=== PATIENT | female | born 1940 | race Caucasian/White ===

== ENCOUNTER 2021-04-03 14:06 | Outpatient (CLI) | payer MEDICARE, SELFPAY ==
--- NOTE | ~2021-04-03 | DEXA_ITS ---
Bone Density Report Name: Nona Kay Age: 80 Sex: Female Ethnicity: White Date of : 1940 Indication: postmenopausal; height loss; hysterectomy; Referring Provider: Alyssia Moreno Study: Bone densitometry was performed. Exam Date: April 03, 2021 Accession number: [id number] Bone Density: Region BMD T-score Z-score Classification AP Spine (L1, L2) 1.257 2.5 5.1 Normal Femoral Neck (Left) 0.610 -2.1 0.3 Osteopenia Total Hip (Left) 0.984 0.3 2.5 Normal World Health Organization criteria for BMD impression classify patients as: Normal (T-score at or above -1.0), Osteopenia (T-score between -1.0 and -2.5), or Osteoporosis (T-score at or below -2.5). 10-year Fracture Risk(1): Major Osteoporotic Fracture 15% Hip Fracture 4.6% Reported Risk Factors: [place] (), Neck BMD=0.610, BMI=35.7 (1) FRAX(R) Version 3.08. Fracture probability calculated for an untreated patient. Fracture probability may be lower if the patient has received treatment. Clinical Information Provided by Patient: Has used the following medications: Vitamin D, Calcium Has the following medical conditions: Hysterectomy Patient maximum height was 65 Menopause Age: 48 No regular weight bearing exercise Onset of menses at age 11 Number of children 0 Impression: The patient has low bone mass, based on the Left Femoral Neck T-score. The patient has an estimated ten-year risk of hip fracture of 4.6% and an estimated ten-year risk of major fracture of 15%, based on the WHO FRAX algorithm. Discussion: BONE DENSITY IS LOW AT ONE OR MORE SKELETAL SITES. THE PATIENT'S BMD AND CLINICAL RISK FACTORS CONTRIBUTE TO THIS PATIENT'S INCREASED RISK OF FRACTURE. This patient's lowest T-score is low at one or more skeletal sites. It meets the World Health Organization's (WHO) criteria for ?low bone mass? (T-score between -1.0 and -2.5). The patient's 10-year risk of hip fracture as calculated by FRAX exceeds the threshold where pharmacological therapy is recommended by the National Osteoporosis Foundation (NOF). However, all treatment decisions require clinical judgment and consideration of individual patient factors, including patient preferences, comorbidities, previous drug use, risk factors not captured in the FRAX model (e.g., frailty, falls, vitamin D deficiency, increased bone turnover, interval significant decline in bone density) and possible under or overestimation of fracture risk by FRAX. The patient should follow a healthful lifestyle (good nutrition with adequate calcium and vitamin D, and appropriate weight-bearing exercise). Follow-Up: Consider a repeat BMD and Vertebral Fracture Assessment (VFA) exam in 2 years or sooner if medically necessary, to reassess this patient's status. Reported by: [facility] on 04/03/2021 2:42:00 PM.
== END 2021-04-03 14:07 | disposition home or self-care (01) ==
LOC: ANHIMG 14:08
PROVIDERS: PCP Family Medicine; Visit Provider Family Medicine
DX: Z78.0 Asymptomatic menopausal state (principal); M85.852 Other specified disorders of bone density and structure, left thigh
CPT/HCPCS: 77080

== ENCOUNTER 2022-01-29 12:55 | Outpatient (CLI) | payer MEDICARE, SELFPAY ==
--- NOTE | ~2022-01-29 | XR_ITS ---
XR hip LT min 3V w AP pelvis 01/29/2022 13:48 Indication: Left hip pain Procedure: 4 views left hip Comparison: 11/03/2013 Findings: Mild osteoarthritis of the left hip. Advanced lumbar spondylosis. There is a right total hi p arthroplasty. Pelvic rings are intact. Sacral foramen are symmetric. There is atherosclerosis of th e pelvic vessels. Impression: 1: Mild osteoarthritis of the left hip. Reviewed, dictated and finalized at location A. Impression: 1: Mild osteoarthritis of the left hip.
== END 2022-01-29 12:56 | disposition home or self-care (01) ==
PROVIDERS: PCP Family Medicine; Visit Provider Family Medicine
DX: M16.12 Unilateral primary osteoarthritis, left hip (principal)
CPT/HCPCS: 73502

== ENCOUNTER 2022-07-06 12:30 | Outpatient (RCR) | payer MEDICARE, SELFPAY ==
--- NOTE | 2022-04-12 17:26 | PTOPEVAL1 ---
Assessment and note entered by Abhinav Ocasio, PT Evaluation Information Assessment Status Evaluation Diagnosis L shoulder adhesive capsulitis Onset gradual Subjective Information Nona reports she thinks this all started when she was walking her [employer] mac and it yanked on her leash very hard. The patient has trouble putting on a bra or washing her hair, but in no pain unless she tried to push the shoulder past its range of motion. She is R handed. Reported Pain Level Pain Score 0: Self Report Additional Pain Score Comments no pain unless going into end range of abduction, external rotation, or flexion of the L shoulder. Assessment PT Clinical Summary Antonia Vicente is an 81 year old female coming into the clinic for a diagnosis of L frozen shoulder. She has decreased range of motion in external rotation , flexion and abduction when compared to the R shoulder. Increase in range of motion is causing decreased ability to do activity of daily living. Physical therapy should be beneficial to work on improving the range of motion through exercises, stretching and manual therapy. Modalities used for pain control as needed. Plan of Care Interventions Electrical Stimulation,Hot Pack/Cold Pack,Manual Therapy,Neuro Re-education,Therapeutic Activities, Therapeutic Exercise PT Services Indicated Yes Treatment Frequency and 2x/wk for 4 weeks Duration These treatments will address the objective and functional deficits as defined above. The patient will be advanced safely and appropriately in order for the patient to progress towards his/her prior level of function. Additional exercises will be introduced and as well as a comprehensive home exercise program upon discharge, if needed, ?to ensure carryover of functional gains achieved in the clinic. This treatment plan has been reviewed and agreement upon by the patient.
--- NOTE | 2022-05-10 11:26 | PCPTNOTE ---
Addendum entered by Abhinav Ocasio, PT 05/10/22 15:14: at 1142 patient shows up thinking her appointment was at 1200, unable to see patient, re-evaluation cancelled. Original Note: Patient did not show up for scheduled appointment this date. Called patient and left message to call and reschedule secondary this being her re-evaluation.
[2022-06-07 13:30] VITALS: BP_SYST 135
--- NOTE | 2022-06-07 17:11 | PTOPREEVAL ---
Assessment and note entered by Abhinav Ocasio, PT Evaluation Information Assessment Status Re-evaluation Diagnosis Adhesive capsulitis of L shoulder Onset gradual Subjective Information Patient reports that she did have a fall within the last week on that L shoulder and it hurts more than it has since starting therapy. Reports she is able to get her L shoulder up to wash her hair, but after a while it will start hurting. Reported Pain Level Pain Score 6: Self Report Assessment PT Clinical Summary Antonia Vicente is an 81 year old female coming into the clinic with decreased range of motion and strength in the L shoulder. She was evaluated on 04/12/22 and has attended 5 visits so far. She has improved her external rotation passive range of motion by 60 degrees and is able to now wash her hair for a little bit before pain sets in. She had a fall which has increased her pain. Recommend continued physical therapy to continue to work on strengthening and range of motion of the L shoulder along with modalities and manual therapy to help with pain control. Plan of Care Interventions Electrical Stimulation,Gait Training,Hot Pack/Cold Pack,Manual Therapy,Neuro Re-education,Patient/ Caregiver Education,Therapeutic Activities, Therapeutic Exercise,Ultrasound PT Services Indicated Yes Treatment Frequency and 1-2x/wk for 4 weeks Duration These treatments will address the objective and functional deficits as defined above. The patient will be advanced safely and appropriately in order for the patient to progress towards his/her prior level of function. Additional exercises will be introduced and as well as a comprehensive home exercise program upon discharge, if needed, ?to ensure carryover of functional gains achieved in the clinic. This treatment plan has been reviewed and agreement upon by the patient.
--- NOTE | 2022-06-15 12:56 | PCPTNOTE ---
Patient did not show up for scheduled appointment this date. Called patient, however, had to leave a message.
--- NOTE | 2022-07-06 13:14 | PTOPDC ---
Assessment and note entered by Abhinav Ocasio, PT Evaluation Information Assessment Status Discharge Diagnosis Adhesive capsulitis of the L shoulder Onset gradual Subjective Information Patient reports that she is able to wash her hair and grab her parking brake without issue. The only activity she cannot do according to her is putting on a bra with the L arm. Patient reports no pain unless at end range of internal rotation. Reported Pain Level Pain Score 0: Self Report Additional Pain Score Comments Patient reports moderate dull pain with L internal rotation. Assessment PT Clinical Summary Nona is an 81 year old female coming into the clinic for 10 visits. She reports she is back to being able to washing her hair and her normal activities of daily living besides putting on her bra. At this time it was agreed with therapy and patient to continue working on the IR with her HEP and to discontinue skilled physical therapy. Plan of Care PT Services Indicated No Treatment Frequency and discharged from skilled physical therapy. Duration
== END 2022-07-09 08:09 | disposition home or self-care (01) ==
LOC: ANHPT 12:30
PROVIDERS: PCP Family Medicine; Visit Provider Family Medicine
DX: M75.00 Adhesive capsulitis of unspecified shoulder (principal)
CPT/HCPCS: 97014; 97110; 97140; 97161; 97530; 99199; G0283

== ENCOUNTER 2023-01-16 14:36 | Outpatient (CLI) | payer MEDICARE, SELFPAY ==
[2023-01-16 15:34] LABS: Influenza A QL RT-PCR Negative (Negative); Influenza B QL RT-PCR Negative (Negative); RSV RNA, RT-PCR Negative (Negative); SARS-CoV-2 RNA PCR Negative (Negative)
== END 2023-01-16 14:37 | disposition home or self-care (01) ==
PROVIDERS: PCP Family Medicine; Visit Provider Physician Assistant
DX: R50.9 Fever, unspecified (principal)
CPT/HCPCS: 87637

== ENCOUNTER 2023-12-02 12:42 | Outpatient (CLI) | payer MEDICARE, SELFPAY ==
--- NOTE | ~2023-12-02 | XR_ITS ---
XR shoulder RT min 2V Ordering provider: Shelly Montano PA-C History: . R20.0 - Anesthesia of skin . Comparison: None. FINDINGS: BONES: Lucency in the humeral head which may be a fracture although meatuses summation shadow. JOINT SPACES: The acromioclavicular joint is normal. The glenohumeral joint shows osteoarthritic lau ges SOFT TISSUES: Normal. IMPRESSION: Lucency in the humeral head which may indicate a fracture although less likely. Follow-up advised. Severe osteoarthritic changes. Reviewed, dictated and finalized at location A.
--- NOTE | ~2023-12-02 | XR_ITS ---
XR_[id number]_CR 12/02/2023 13:00 Indication: Neck pain Procedure: 4 view cervical spine Comparison: No prior studies for comparison. Findings: Straightening of cervical lordosis. There is severe cervical spondylosis characterized by m ultilevel facet and uncinate hypertrophy, straightening of cervical lordosis and bridging osteophytes anteriorly at C5-6 and C6-7. Lung apices are normal. Odontoid process is normal. No prevertebral sof t tissue swelling. Impression: 1: Severe cervical spondylosis. Reviewed, dictated and finalized at location B. Impression: 1: Severe cervical spondylosis.
== END 2023-12-02 12:43 ==
LOC: MICIMG 12:43
PROVIDERS: PCP Family Medicine; Visit Provider Student in an Organized Health Care Education/Training Program
DX: M43.02 Spondylolysis, cervical region (principal); M19.011 Primary osteoarthritis, right shoulder
CPT/HCPCS: 72040; 73030

== ENCOUNTER 2024-10-12 11:45 | Emergency (ER) | payer MEDICARE, SELFPAY ==
--- NOTE | ~2024-10-12 | CT_ITS ---
EXAMINATION: CT brain wo con DATE: 10/12/2024 11:49 INDICATION: Unresponsive. Left eye deviation. TECHNIQUE: Computed tomography (CT) of the head was performed without intravenous contrast. Sagittal and coronal reconstructions were performed. The mA was adjusted according to patient size. Iterative reconstruction technique was employed. The dose-length product was 605.33 mGy-cm. COMPARISON: Images from prior study dated 12/21/2017 are unavailable at this time for comparison. 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 A couple very small old infarcts in the left parietal lobe. Sma ll old lacunar infarct at the head of the right caudate nucleus. Small regions of decreased attenuati on at the bilateral lentiform nuclei consistent with age indeterminate lacunar infarcts. No acute int racranial hemorrhage or abnormal extra axial fluid collection. Symmetric prominence of the sulci cons istent with mild age-appropriate diffuse cerebral volume loss. Ventricles are normal and symmetric. N o mass/mass effect. Changes of bilateral intraocular lens replacement. The orbits, paranasal sinuses and mastoid air cells are normal. IMPRESSION: 1. No acute intracranial hemorrhage. 2. Small old infarcts in the right frontoparietal region and right insula, a couple tiny old infarcts in the left parietal lobe, small old infarct at the right caudate nucleus and a couple age-indetermi nirmala lacunar infarcts in the bilateral basal ganglia. Reviewed, dictated and finalized at location A. IMPRESSION: 1. No acute intracranial hemorrhage. 2. Small old infarcts in the right frontoparietal region and right insula, a co uple tiny old infarcts in the left parietal lobe, small old infarct at the righ t caudate nucleus and a couple age-indeterminate lacunar infarcts in the bilate ral basal ganglia.
--- NOTE | ~2024-10-12 | XR_ITS ---
XR chest 1V portable 10/12/2024 12:35 Indication: CVA. Procedure: AP portable chest Comparison: No prior studies for comparison. Findings: Cardiomegaly. There is mitral annular calcification. Elevated right diaphragm. No focal air space disease, pulmonary edema, pleural effusion or suspected pneumothorax. No pneumothorax. Severe degenerative changes left glenohumeral joint. Impression: 1: No acute cardiopulmonary disease. Reviewed, dictated and finalized at location A. Impression: 1: No acute cardiopulmonary disease.
--- NOTE | ~2024-10-12 | CT_ITS ---
EXAMINATION: CTA BRAIN/CAROTID DATE: 10/12/2024 11:56 INDICATION: Unresponsive. Left eye deviation. TECHNIQUE: Computed tomographic angiography (CTA) of the head and neck was performed with 100 mL Omni paque-350 intravenous contrast. Multiplanar reconstructions and maximum intensity projection 3D-recon structions of the carotid arteries and of the intracranial arteries were created by the technologist on a separate workstation. Precontrast CT of the head was also obtained. Automated exposure control and iterative reconstruction technique were employed.The dose-length product was 1085.83 mGy-cm. COMPARISON: None. FINDINGS: Carotid arteries: Small amount of nonhemodynamically significant atherosclerotic plaque and no dissection of the normal caliber aortic arch and great vessels arising from the arch. Bilateral extracranial vertebral arteri es are codominant with no hemodynamically since consistent stenosis. There is atherosclerotic plaque with 0% stenosis of the right carotid bulb relative to normal distal artery lumen diameter (NASCET cr iteria). There is atherosclerotic plaque with 0% stenosis of the left carotid bulb relative to normal distal artery lumen diameter. There is tortuosity with kinking configuration of portions of the more distal bilateral extracranial internal carotid arteries. Likely benign subcentimeter bilateral thyro id nodules. Mosaic attenuation in the lungs likely related to atelectasis with concave posterior wall s and decreased AP diameters of the trachea and mainstem bronchi consistent with expiratory phase of imaging. The flattening of the trachea and bronchi are also consistent with tracheobronchomalacia. Mo derate to severe cervical spondylosis. Intracranial arteries Vertebral arteries are codominant. Nonhemodynamically significant atherosclerotic calcifications christina g the periphery of the bilateral carotid siphons. There is no hemodynamically significant stenosis in the vertebral, basilar and internal carotid arteries. Both A1 segments are patent along with a paten t anterior communicating artery. The bilateral posterior cerebral arteries appear exclusively supplie d by the respective bilateral internal carotid arteries via patent bilateral posterior communicating arteries. There are no aneurysms identified. Cerebral arterial arborization appears symmetric. No ab normally enhancing brain lesions on the postcontrast imaging. IMPRESSION: 1. Small amount of atherosclerotic plaque with 0% stenosis of the right and left carotid bulbs relati ve to normal distal artery lumen diameter (NASCET criteria). 2. Normal variation of the [place] with both posterior cerebral artery supplied via the resp ective bilateral internal carotid arteries via patent bilateral posterior communicating arteries. No evident aneurysm, hemodynamically since and stenosis or thrombosis. 3. Moderate to severe cervical spondylosis. 4. Tracheobronchomalacia. Reviewed, dictated and finalized at location A. IMPRESSION: 1. Small amount of atherosclerotic plaque with 0% stenosis of the right and lef t carotid bulbs relative to normal distal artery lumen diameter (NASCET criteri a). 2. Normal variation of the grindstone of [place] with both posterior cerebral artery supplied via the respective bilateral internal carotid arteries via patent suzan ateral posterior communicating arteries. No evident aneurysm, hemodynamically s katheryn and stenosis or thrombosis. 3. Moderate to severe cervical spondylosis. 4. Tracheobronchomalacia.
[2024-10-12 12:01] LABS: Basophils Percent Auto 0.5 % (0.2-1.2); Eosinophils Absolute Auto 0.2 K/mm3 (0-0.3); Eosinophils Percent Auto 3.6 % (0-4.4); Hematocrit 36.5 % (37.0-47.0); Hemoglobin 11.7 g/dL (12.0-15.0); Immature Granulocyte Absolute 0.02 K/mm3 (0.00-0.031); Immature Granulocyte Percent A 0.3 % (0-0.5); Lymphocytes Absolute Auto 1.35 K/mm3 (0.9-3.2); Lymphocytes Percent Auto 22.8 % (18.3-44.2); Mean Corpuscular HGB Conc 32.1 g/dl (32-36); Mean Corpuscular Volume 90.6 fl (80-100); Mean Platelet Volume 9.3 fl (7.4-10.4); Monocytes Absolute Auto 0.5 K/mm3 (0.1-0.6); Monocytes Percent Auto 8.5 % (2.6-8.5); Neutrophils Absolute Auto 3.8 K/mm3 (1.3-6.7); Neutrophils Percent Auto 64.3 % (45.5-73.1); Platelet Count Result 176 k/mm3 (150-375); Red Blood Count 4.03 M/mm3 (4.2-5.4); Red Cell Distribution Width 12.9 % (11.5-14.5); White Blood Count 5.9 K/mm3 (4.5-10.0)
[2024-10-12 12:04] VITALS: BP 164/116; BP 164/119; PULSE 75; PULSE 76; RESP 18; RESP 22; TEMP 36.8; O2SAT 96; O2SAT 97
--- NOTE | 2024-10-12 12:05 | ECG_ITS ---
Test Date: 2024-10-12 12:05:05 Measurements Intervals [place] Rate: 80 P: 0 UT: 0 QRS: 196 QRSD: 133 T: -16 QT: 394 QTc: 455 Interpretive Statements ATRIAL FIBRILLATION RIGHT AXIS DEVIATION RIGHT BUNDLE BRANCH BLOCK ANTEROSEPTAL INFARCT, AGE INDETERMINATE INFERIOR INFARCT, AGE INDETERMINATE ABNORMAL ECG No previous ECG available for comparison Electronically Signed On 10-12-2024 15:49:24 CDT by Josue Lorenzo D.O.
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
[2024-10-12 12:14] LABS: Alanine Aminotransferase 19 U/L (6-35); Albumin Level 3.9 g/dL (3.5-5.1); Alkaline Phosphatase 47 U/L (38-126); Anion Gap 8 mmol/L (4-12); Aspartate Amino Transferase 30 U/L (14-36); Bilirubin,Total 0.7 mg/dL (0.2-1.3); Blood Urea Nitrogen 31 mg/dL (7-17); Calcium 9.6 mg/dL (8.4-10.2); Carbon Dioxide 25 mmol/L (22-30); Chloride 106 mmol/L (98-107); Estimated Glomerular Filt Rate 35; Glucose 171 mg/dL (65-110); Potassium 5.2 mmol/L (3.4-5.0); Sodium 139 mmol/L (137-145)
[2024-10-12 12:17] VITALS: BP 145/71; PULSE 82; RESP 16; TEMP 36.8; O2SAT 97
[2024-10-12 12:17] LABS: INR 1.2; Prothrombin Time 15.2 Seconds (11.1-14.7)
[2024-10-12 12:18] LABS: Partial Thromboplastin Time 26.3 Seconds (22.3-36.8)
[2024-10-12 12:25] LABS: Troponin I < 0.012 ng/mL (0.000-0.034)
--- OUTSIDE RECORDS SUMMARY | 2024-10-12 12:27 | XMS_ITS | Referral Summary ---
Author Organization [facility] Address [address] [place] [id number] Care Team Providers Care Loans Consultant Name Role Phone Alyssia Moreno MD Primary Care Provider [phone] Allergies Active Allergy Reactions Criticality Noted Date Comments Codeine Vomiting Low 03/02/2021 Social History Tobacco Use Types Packs/Day Years Used Date Smoking Tobacco: Never Assessed Personal Safety Answer Date Recorded Getting School Help Needed Not on file 07/27 Comments Unknown Sex and Gender Information Value Date Recorded Sex Assigned at Not on file Legal Sex Female 3:01 PM CDT Gender Identity Not on file Sexual Orientation Not on file Plan of Treatment Not on file Insurance [facility] MDCR HMO REF Care Teams Loans Consultant Relationship Specialty Start Date End Date Alyssia Moreno MD PCP - General Family Medicine 01/26/21
--- OUTSIDE RECORDS SUMMARY | 2024-10-12 12:27 | XMS_ITS | Encounter Summary ---
Author Organization [facility] Address [address] [facility] [address] [place] [id number] Care Team Providers Care Legal Advisor Name Role Phone Meliton May Primary Care Provider [phone] Scott Payne Primary Care Provider [phone] Alyssia Moreno MD Primary Care Provider [phone] Encounter Details Date Type Department Care Team (Late st Contact Info) Description 09/17/2016 Orders Only [facility] ProviderJeff MD [address] [place] [id number] Social History Tobacco Use Types Packs/Day Years Used Date Smoking Tobacco: Never Assessed Comments Unknown Sex and Gender Information Value Date Recorded Sex Assigned at Not on file Legal Sex Female 3:01 PM CDT Gender Identity Not on file Sexual Orientation Not on file documented as of this encounter Plan of Treatment Not on file documented as of this encounter Procedures Procedure Name Priority Date/Time Associated Diagnosis Comments CARDIOLOGY REPORT 09/17/2016 documented in this encounter Results * CARDIOLOGY REPORT (09/17/2016) Anatomical Region Laterality Modality Other Narrative 09/17/2016 Ordered by an unspecified provider. Historical Provider [facility] Final Result documented in this encounter Visit Diagnoses Not on filedocumented in this encounter Care Teams Legal Advisor Relationship Specialty Start Date End Date Meliton May [address] [place] [address] PCP - General 09/11/16 07/17/20 Scott Payne PA [address] [place] [address] PCP - General Physician Cotton Stomper 07/18/20 01/25/21 Alyssia Moreno MD [address] [place] [address] PCP - General Family Medicine 01/26/21 documented as of this encounter
--- OUTSIDE RECORDS SUMMARY | 2024-10-12 12:27 | XMS_ITS | Clinical Summary ---
Author Organization [facility] Address [address] [place] [id number] Care Team Providers Care Lip Of Shank Cutter Name Role Phone Alyssia Moreno MD Primary Care Provider [phone] Allergies Active Allergy Reactions Criticality Noted Date [...] Plan of Treatment Not on file Insurance [facility] MDCR HMO REF Care Teams Lip Of Shank Cutter Relationship Specialty Start Date End Date Alyssia Moreno MD PCP - General Family Medicine 01/26/21
--- NOTE | 2024-10-12 12:35 | PC.NURSE ---
Christina Avalos (friend) listed in chart called at [phone]. Phone number disconnected.
--- NOTE | 2024-10-12 12:37 | PC.NURSE ---
Dr. Bar at bedside explaining risks/benefits on TNK administration. Patient agreeable to receive medication.
--- NOTE | 2024-10-12 12:40 | PC.NURSE ---
Addendum entered by Marquita Gil RN 10/12/24 12:42: any, not at* Original Note: Pedro, at [facility], looked into patient rx history, reports that they have never filled at blood thinners.
--- NOTE | 2024-10-12 12:44 | PC.NURSE ---
Patricia Georges, at [facility], looked into patient rx history, reports that they have never filled any blood thinners.
[2024-10-12 12:52] VITALS: BP 175/86; PULSE 80; RESP 17; O2SAT 99
[2024-10-12] MEDS: TENECTEPLASE 50 MG/10 ML VIAL 22.8 MG IV PUSH (13:06)
[2024-10-12 13:10] VITALS: BP 156/92; PULSE 74; RESP 20; O2SAT 98
[2024-10-12 13:24] LABS: Glucose Point of Care 126 mg/dl (65-105)
[2024-10-12 14:14] VITALS: BP 179/72; PULSE 79; RESP 16; O2SAT 99
--- NOTE | 2024-10-12 14:15 | PC.NURSE ---
Pt gave verbal consent for RN to call and update her friend Christina Avalos
[2024-10-12 14:38] VITALS: BP 167/79; PULSE 77; RESP 22; O2SAT 98
== END 2024-10-12 14:41 | disposition short-term general hospital (02) ==
PROVIDERS: Emergency Provider Family Medicine; PCP Family Medicine
DX: I63.9 Cerebral infarction, unspecified (principal); I48.91 Unspecified atrial fibrillation; M47.812 Spondylosis without myelopathy or radiculopathy, cervical region; R29.721 NIHSS score 21; I12.9 Hypertensive chronic kidney disease with stage 1 through stage 4 chronic kidney disease, or unspecified chronic kidney disease; E11.22 Type 2 diabetes mellitus with diabetic chronic kidney disease; N18.30 Chronic kidney disease, stage 3 unspecified; E11.40 Type 2 diabetes mellitus with diabetic neuropathy, unspecified
CPT/HCPCS: 36415; 37195; 70450; 70496; 70498; 71045; 80053; 82948; 84484; 85025; 85610; 85730; 93005; 99285; J3101; Q9967